=== PATIENT | male | born 1970 | race Two or more races ===

== ENCOUNTER 2024-05-05 13:56 | Emergency (ER) | payer MEDICAID, OTHER ==
[~2024-05-05] VITALS: Ht 167.6 cm; Wt 91.6 kg
--- NOTE | 2024-05-05 14:15 | ED.PDOC ---
HPI Comments 53 y/o M, presents to the ED for CC of laceration. Patient states, that he was working at home when he accidently hit a bearing grinder against his right knee and leg. Patient c/o of current right leg pain; patient has a visible 7cm deep laceration to the right knee and an abrasion to the 2nd right digit. Patient denies social history. Patient denies LOC, hitting his head, headache, or N/V/D. No other symptoms or modifying factors at this time. Chief Complaint: Laceration Time Seen by MD: 14:00 Reviewed Notes: Nurses Notes, Medications, Allergies Allergies: Coded Allergies: NO KNOWN ALLERGIES (Unverified , 05/05/24) Information Source: Patient Mode of Arrival: Ambulatory Severity: Moderate Complexity: Complex Timing: Minutes Prehospital treatment: None Laceration Location: Leg (right knee), Digit #2 Mechanism: Metal Laceration Length (cm): 3 Depth of Injury: Muscle Tender: None Discharge: None Erythema: None Associated Signs and Symptoms: Abrasion, Bleeding Past Medical History PAST MEDICAL HISTORY: Denies Surgical History: Denies all surgeries Family History Family History: Unknown Social History Smoker: Non-Smoker Alcohol: Denies ETOH Use Drugs: Denies Drug Use Lives In: Home Constitutional: denies: chills, diaphoresis, fatigue, fever, malaise, sweats, weakness, others EENTM: denies: blurred vision, double vision, ear bleeding, ear discharge, ear drainage, ear pain, ear ringing, eye pain, eye redness, hearing loss, mouth pain, mouth swelling, nasal discharge, nose bleeding, nose congestion, nose pain, photophobia, tearing, throat pain, throat swelling, voice changes, others Respiratory: denies: cough, hemoptysis, orthopnea, SOB at rest, shortness of breath, SOB with excertion, stridor, wheezing, others Cardiovascular: denies: chest pain, dizzy spells, diaphoresis, Dyspnea on exertion, edema, irregular heart beat, left arm pain, lightheadedness, palpitations, PND, syncope, others Gastrointestinal: denies: abdomen distended, abdominal pain, blood streaked bowels, constipated, diarrhea, dysphagia, difficulty swallowing, hematemesis, melena, nausea, poor appetite, poor fluid intake, rectal bleeding, rectal pain, vomiting, others Genitourinary: denies: burning, dysuria, flank pain, frequency, hematuria, incontinence, penile discharge, penile sore, pain, testicle pain, testicle swel ling, urgency, others Neurological: denies: dizziness, fainting, headache, left sided numbness, left sided weakness, numbness, paresthesia, pre-existing deficit, right sided numbness, right sided weakness, seizure, speech problems, tingling, tremors, weakness, others Musculoskeletal: reports: muscle pain; denies: back pain, gout, joint pain, joint swelling, muscle stiffness, neck pain, others Integumetry: reports: laceration, wounds; denies: bruises, change in color, change in hair/nails, dryness, lesions, lumps, rash, others Allergic/Immunocompromised: denies: Difficulty Healing, Frequent Infections, Hives, Itching, others Hematologic/Lymphatic: denies: anemia, blood clots, easy bleeding, easy bruising, swollen glands, others Endocrine: denies: excessive hunger, excessive sweating, excessive thirst, excessive urination, flushing, intolerance to cold, intolerance to heat, unexplained weight gain, unexplained weight loss, others Psychiatric: denies: anxiety, bipolar disorder, depression, hopeless, panic disorder, schizophrenia, sleepless, suicidal, others All Other Systems: Reviewed and Negative Physical Exam General Appearance: Moderate Distress HEENT: Normal ENT Inspection, Pharynx Normal, TMs Normal Neck: Full Range of Motion, Non-Tender, Normal, Normal Inspection Respiratory: Chest Non-Tender, Lungs Clear, No Accessory Muscle Use, No Respiratory Distress, Normal Breath Sounds Cardiovascular: No Edema, No JVD, No Murmur, No Gallop, Normal Peripheral Pulses, Regular Rate/Rhythm Breast Exam: Deferred Gastrointestinal: No Organomegaly, Non Tender, No Pulsatile Mass, Normal Bowel Sounds, Soft Genitalia: Deferred Pelvic: Deferred Rectal: Deferred Extremities: No calf tenderness, Normal capillary refill, Normal inspection, Normal range of motion, Non-tender, No pedal edema Musculoskeletal : Apperance: Normal Neurologic: Alert Cerebellar Function: NOT DONE Reflexes: NOT DONE Skin: Lacerations (Right lower extremity ) Peripheral Pulses: 3+ Radial (R), 3+ Radial (L) Lymphatic: No Adenopathy Was a procedure done? Was a procedure done?: No Differential diagnosis Generic Laceration: Fracture, Abrasion/Contusion, Laceration X-Ray, Labs, Meds, VS Vital Signs Date Time Temp Pulse Resp B/P (MAP) Pulse Ox O2 Delivery O2 Flow Rate FiO2 05/05/24 16:15 98.0 58 16 161/89 (113) 95 98.0 05/05/24 16:00 58 16 161/89 05/05/24 15:20 64 12 164/84 05/05/24 14:44 Room Air* 0 21 05/05/24 14:30 97.2 64 18 175/98 (123) 97 97.2 05/05/24 14:06 97.2 74 17 194/96 (128) 99 Current Medications Medications (Trade) Dose Ordered Sig/Scottie Route Start Time Stop Time Status Last Admin Cefazolin Sodium 50 ml @ 100 mls/hr ONCE ONCE IV 05/05/24 14:15 05/05/24 14:44 DC 05/05/24 14:21 Sodium Chloride 1,000 ml @ 1,000 mls/hr Q1H ONCE IV 05/05/24 14:15 05/05/24 15:14 DC 05/05/24 14:21 Morphine Sulfate 4 mg ONCE ONCE IV 05/05/24 15:00 05/05/24 15:01 DC 05/05/24 15:20 Ondansetron HCl (Zofran) 4 mg ONCE ONCE IV 05/05/24 15:00 05/05/24 15:01 DC 05/05/24 15:19 Patient alert pain Open wound. Ligamentous injury. Possible bone fracture. Vitals stable. Establish intravenous access. Was given morphine. Was given Zofran. Was given Ancef. Transfer for higher level of care. Has good pulses. Good skin color. Will require intravascular study for runoff. With oozing of blood from the wound. Explained to the patient. Time of 1ST Reevaluation: 14:30 Reevaluation 1ST: Unchanged Patient Education/Counseling: Diagnosis, Treatment Family Education/Counseling: No Family Present Departure 1 Departure Time of Disposition: 14:39 Impression: Primary Impression: Laceration Disposition: 02 SHORT TERM HOSPITAL Admit to: Med Surg Condition: Guarded Critical Care Note Critical Care Time?: Yes (45 min-critical care time only) Stability Stability form required: No Heart Score Heart Score: Heart Score Response (Comments) Value History N/A 0 EKG N/A 0 Age N/A 0 Risk Factors N/A 0 Troponin N/A 0 Total 0 I personally scribed for RADHA TOBIAS MD ([email or web address]) on 05/05/24 at 14:15. Electronically submitted by Aleena Najera ([email or web address]). RADHA TOBIAS MD May 05, 2024 14:15
[2024-05-05] MEDS: SODIUM CHLORIDE 0.9% 1,000 ML IV ONE (14:21)
[2024-05-05] MEDS: ceFAZolin 1GM/50ML 50 ML IV ONE (14:21)
[2024-05-05] MEDS: ONDANSETRON HCL 4 MG/2 ML VIAL IV ONE (15:19)
[2024-05-05] MEDS: MORPHINE SULFATE 4 MG/ML SYR/VIAL IV ONE (15:20)
[2024-05-05 16:15] VITALS: BP 161/89; PULSE 58; RESP 16; TEMP 98; O2SAT 95
== END 2024-05-05 14:39 | disposition short-term general hospital (02) ==
LOC: ER 13:56
DX: S81.011A Laceration without foreign body, right knee, initial encounter (principal); W22.8XXA Striking against or struck by other objects, initial encounter; Y93.89 Activity, other specified; Y92.89 Other specified places as the place of occurrence of the external cause; Y99.8 Other external cause status
CPT/HCPCS: 96365; 96375; 99285; J0690; J2270; J2405; J7030